=== PATIENT | female | born 1990 | race Caucasian/White ===

== ENCOUNTER → 2018-04-14 14:16 | Outpatient (CLI) | payer BC, SELFPAY ==
[2018-04-14 13:27] VITALS: BMI 32.4
== END ==
PROVIDERS: Family Provider Internal Medicine; PCP Internal Medicine; Visit Provider Obstetrics & Gynecology
DX: Z34.81 Encounter for supervision of other normal pregnancy, first trimester (principal)
CPT/HCPCS: 36415

== ENCOUNTER → 2018-10-19 | Outpatient (CLI) | payer BC, SELFPAY ==
[2018-10-19 16:02] VITALS: BMI 32.4
[2018-10-19 17:57] LABS: Hemoglobin A1c 5.2 % (4.2-6.3)
== END | disposition home or self-care (01) ==
LOC: LAB 17:10
PROVIDERS: Family Provider Internal Medicine; PCP Internal Medicine; Referring Provider Obstetrics & Gynecology; Visit Provider Obstetrics & Gynecology
DX: Z34.81 Encounter for supervision of other normal pregnancy, first trimester (principal)
CPT/HCPCS: 36415; 83036

== ENCOUNTER → 2018-10-26 | Outpatient (CLI) | payer BC, SELFPAY ==
[2018-10-26 15:42] VITALS: BMI 32.4
[2018-10-26 17:09] LABS: Absolute Lymphocyte Count 2.19 X10^3/uL (0.83-4.51); Absolute Neutrophil Count 8.2 X10^3/uL (2.0-7.7); Basophil# 0.02 X10^3/uL; Basophil% 0.2 % (0-1); Eosinophil# 0.09 X10^3/uL; Eosinophils% 0.8 % (0-5); Hematocrit 38.5 % (37-47); Hemoglobin 12.7 g/dL (12.0-15.0); Lymphocyte # 2.19 X10^3/ul (4.0); Lymphocyte % 18.7 % (19-41); Mean Corpuscular Hgb 28.9 pg (27.0-32.0); Mean Corpuscular Volume 87.5 fL (81-99); Mean Platelet Vol. 11.1 fl (6.2-12.0); Monocyte# 1.13 X10^3/uL; Monocyte% 9.6 % (0-10); NRBC Flagged by Analyzer 0 % (0-5); Neutrophil # 8.22 X10^3/uL (2.7-7.7); Platelet Count 240 K/mm3 (150-450); RBC Distribution Width CV 14.3 % (11.6-14.6); White Blood Count 11.7 K/mm3 (4.4-11.0)
[2018-10-26 17:58] LABS: HIV - WCH Non-Reactive (Nonreactive); Rubella IgG 2.5 IU/mL
[2018-10-30 01:38] LABS: Rapid Plasmin Reagin (RPR) NONREACTIVE (NONREACTIVE)
== END | disposition home or self-care (01) ==
LOC: LAB 16:03
PROVIDERS: Family Provider Internal Medicine; PCP Internal Medicine; Referring Provider Obstetrics & Gynecology; Visit Provider Obstetrics & Gynecology
DX: Z34.90 Encounter for supervision of normal pregnancy, unspecified, unspecified trimester (principal); Z3A.40 40 weeks gestation of pregnancy
CPT/HCPCS: 36415; 85025; 86592; 86703; 86762; 86850; 86900; 87086; 87088

== ENCOUNTER 2018-10-29 15:50 | Inpatient (IN) | payer BC, SELFPAY ==
[2018-10-26 15:42] VITALS: BMI 32.4
[2018-10-29 16:33] VITALS: BMI 33.7
[2018-10-29 17:12] LABS: Absolute Lymphocyte Count 2.21 X10^3/uL (0.83-4.51); Absolute Neutrophil Count 9.7 X10^3/uL (2.0-7.7); Basophil# 0.03 X10^3/uL; Basophil% 0.2 % (0-1); Eosinophil# 0.07 X10^3/uL; Eosinophils% 0.5 % (0-5); Hematocrit 39.7 % (37-47); Hemoglobin 13.6 g/dL (12.0-15.0); Lymphocyte # 2.21 X10^3/ul (4.0); Lymphocyte % 16.5 % (19-41); Mean Corp Hgb Conc 34.3 g/dL (32-36); Mean Corpuscular Hgb 29.6 pg (27.0-32.0); Mean Corpuscular Volume 86.5 fL (81-99); Mean Platelet Vol. 10.6 fl (6.2-12.0); Monocyte# 1.29 X10^3/uL; Monocyte% 9.6 % (0-10); NRBC Flagged by Analyzer 0 % (0-5); Neutrophil # 9.67 X10^3/uL (2.7-7.7); Neutrophil % 72.5 % (47-70); Platelet Count 260 K/mm3 (150-450); RBC Distribution Width CV 13.9 % (11.6-14.6); RBC Distribution Width SD 43.1 fl (35.1-43.9); Red Blood Count 4.59 M/mm3 (4.2-5.4); White Blood Count 13.4 K/mm3 (4.4-11.0)
[2018-10-29 17:42] LABS: Hepatitis B Surface Antibody Reactive
--- NOTE | 2018-10-29 18:33 | PCM.HP.OB ---
History Date of Admission: 10/31/18 Final JENN: 10/25/18 Gestational age: 40 Weeks and 6 Days History of this : This is a 28 year-old, at 40w4d weeks gestational age presents in active labor. patient delivered precipitously within an hour and had an uncomplicated . 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 and then transferred care at the end of her due to ketones being present in her urine Medical History: Medical History (Last Reviewed 10/26/18 @ 15:42 by Rosenda Pacheco) Anxiety F41.9 Surgical History: Surgical History (Last Reviewed 10/26/18 @ 15:42 by Rosenda Pacheco) H/O oral surgery Z98.890 Allergies adhesive Adverse Reaction (Verified 10/29/18 16:35) Itching Home Medications: Home Medications vitamin#30 30 mg iron-10 mg iron-folic acid 1 mg-omg3 capsule 1 cap PO DAILY cap 04/14/18 Vitamin B Complex [B Complex] 1 ea PO DAILY 10/29/18 Smoking Status: Never smoker Alcohol: None Number of Fetus(es): 1 NST - FHR Rate Baby A Baseline: 130 Variability:: Moderate Accelerations:: 15 x 15 Decelerations:: None NST Reactive:: Yes FHR Category:: Category I Uterine Activity:: q4-5 History Past Pregnancies: Past Pregnancies 2 previous term uncomplicated Labs: Mom's Labs & Results 10/29/18 10/29/18 10/29/18 16:13 16:13 16:50 WBC 13.4 H RBC 4.59 Hgb 13.6 Hct 39.7 MCV 86.5 MCH 29.6 MCHC 34.3 RDW Std Deviation 43.1 RDW Coeff of Flash 13.9 Plt Count 260 MPV 10.6 Immature Gran % (Auto) 0.700 Neut % (Auto) 72.5 H Lymph % (Auto) 16.5 L [place] % (Auto) 9.6 Eos % (Auto) 0.5 Baso % (Auto) 0.2 Absolute Neuts (auto) 9.7 H Absolute Lymphs (auto) 2.21 Nucleated RBC % 0 Hep Bs Antigen Pending Hep Bs Antibody Reactive Blood Type Antibody Screen 10/29/18 16:50 WBC RBC Hgb Hct MCV MCH MCHC RDW Std Deviation RDW Coeff of Flash Plt Count MPV Immature Gran % (Auto) Neut % (Auto) Lymph % (Auto) [place] % (Auto) Eos % (Auto) Baso % (Auto) Absolute Neuts (auto) Absolute Lymphs (auto) Nucleated RBC % Hep Bs Antigen Hep Bs Antibody Blood Type O POSITIVE Antibody Screen NEGATIVE Course Did the patient receive Yes care? Labs Blood Type: O RH: POSITIVE RPR/VDRL/Syphilis Pending Rubella status Immune HbSAg Negative Date Done: 10/29/18 Chlamydia Not Done Gonorrhea Not Done HIV/AIDS Non-Reactive Group B Strep: Not Done Current Obstetrical History Gestational Diabetes No Incompetent Cervix No Infertility No IUGR No Macrosomia No Hypertension/Pre-eclampsia No Placenta Previa/Abruption No PTL/PROM No Uterine anomaly No Oligohydramnios No Polyhydramnios No Multiple gestation No Past Medical History Asthma No Diabetes No Hypertension No Heart disease No Mitral valve prolapse No Neurologic/Seizure disorder/ No Migraines Kidney disease No Liver disease No Varicosities No Clotting disorders/Hx of DVT No Thyroid Dysfunction No Other medical diseases No Psychiatric disorders No Major trauma No Abnormal PAP smear No Sleep apnea No Mammogram in the last 2 years No Enter DETAILS of medical US of breast - fibrocystic breast history history of anxiety Social History Marital Status: Alleged father Quintin Haro Hx Smoking No Smoking Status Never smoker Expected Infant Delivery Method: Spontaneous Vaginal Review of Systems Constitutional: Denies: Fever, Malaise Eyes: Denies: Blurred vision, Vision Change HEENT: Denies: Head Aches, Visual Changes Cardiovascular: Denies: Chest Pain, Palpitations Respiratory: Denies: Cough, Shortness of Breath, Wheezing Gastrointestinal: Denies: Abdominal Pain, Diarrhea, Nausea, Vomiting Genitourinary: Denies: Dysuria, Hematuria Musculoskeletal: Denies: Joint Pain, Muscle pain Skin: Denies: Lesions, Rash Neurological: Denies: Blurred vision, Focal weakness, Headaches Psychiatric: Denies: Anxiety, Depression Endocrine: Denies: Heat/ Cold Intolerance Hematologic/ Lymphatic: Denies: Easy Bruising, Easy Bleeding Physical Exam General: Alert, Cooperative, No apparent distress HEENT: Atraumatic, Normocephalic. Negative for: Thyromegaly, Lymphadenopathy Cardiovascular: Regular rate Lungs: Normal air movement Abdomen: Soft, Non Tender, Gravid Neurological: Deep Tendon Reflexes 2+/4 and Symmetrical, Neuro grossly intact. Negative for: Clonus MANAGER ENTERPRISE: Normal external genitalia. Negative for: Vulvar lesions Estimated gestational size: Appropriate for gestational size Presentation: Cephalic Assessment/Plan All Active Problems (Last Reviewed 10/26/18 @ 15:42 by Rosenda Pacheco) Obesity affecting (Acute) (Acute) Supervision of normal (Acute) This is a 28 year-old, at 40w4d weeks gestational age presents IAL. delivered uncomplicated
--- NOTE | 2018-10-29 18:33 | PCM.OPRPT ---
Problem List (1) Active labor at term Status: Acute (2) Obesity affecting Status: Acute Qualifiers: Trimester: first trimester Qualified Code(s): O99.211 - Obesity complicating , first trimester Comment: checking 1 week blood sugars. (3) Status: Acute Qualifiers: Weeks of gestation: 40 weeks Qualified Code(s): Z3A.40 - 40 weeks gestation of Comment: nipt done, co care with Zulma Lan planning homebirth, declined labs at this time (4) Supervision of normal Status: Acute Qualifiers: Normal : other normal Trimester: third trimester Qualified Code(s): Z34.83 - Encounter for supervision of other normal , third trimester Comment: (declines labs) JENN 10/25/18 Roger Irene Quintin Vaginal Delivery Maternal Presentation: Active Labor ial 40w4d Amniotic Membrane Rupture Type: Spontaneous Amniotic Fluid Description: Moderate meconium Final JENN: 10/25/18 Gestational age: 40 Weeks and 6 Days Date of Procedure: 10/31/18 Pre-Operative Diagnosis: ial Post-Operative Diagnosis: same Surgery/ Procedure Performed: Spontaneous Vaginal Delivery Type of Anesthesia: Epidural Description of Procedure: patient delivered uncomplicated without issue and head delivered atraumatically. delayed cord clamping two minutes no complications. placenta delivered spontaneously. ebl 300 cc no lacerations Presentation: ALEJANDRA Placental Delivery Description: Spontaneous Placenta Disposition: [facility] Cord Vessel Description: 3 Vessels
[2018-10-30 01:00] VITALS: BP 117/72; PULSE 71; RESP 16; TEMP 36.4; O2SAT 96
[2018-10-30] MEDS: Acetaminophen 500 MG Tablet 1000 MG PO (01:01)
[2018-10-30 04:00] VITALS: BP 108/66; PULSE 57; RESP 16; TEMP 36.4; O2SAT 97
[2018-10-30 08:32] VITALS: BP 99/61; PULSE 80; RESP 16; TEMP 36.6
[2018-10-30 11:54] VITALS: BP 100/64; PULSE 76; RESP 16; TEMP 36.6
[2018-10-30 15:51] VITALS: BP 108/61; PULSE 80; RESP 16; TEMP 36.4
[2018-10-30 20:30] VITALS: BP 117/58; PULSE 77; RESP 16; TEMP 35.8; O2SAT 97
[2018-10-31] MEDS: Acetaminophen 500 MG Tablet 1000 MG PO (00:33)
[2018-10-31 02:50] VITALS: BP 111/74; PULSE 72; RESP 16; TEMP 35.6; O2SAT 97
--- NOTE | 2018-10-31 05:06 | NURSING ---
Rubella on 10/26/18 2.5IU/mL-nonimmune, MMR information sheet given and discussed with pt, pt declines MMR vaccine
[2018-10-31 08:30] VITALS: BP 115/64; PULSE 76; RESP 16; TEMP 36.3
--- NOTE | 2018-10-31 08:33 | PN.OBGYN_ITS ---
Patient Problems: Active and Suspected Problems (Last Reviewed 10/26/18 @ 15:42 by Rosenda Pacheco) Active labor at term (Acute) Subjective: doing well no complaints pain controlled no CP SOB N V ambulating well tolerating po lochia moderate, going well - Physical Exam General: Alert, Oriented x3 Vital Signs Temp Pulse Resp BP Pulse Ox 96.1 F L 72 16 111/74 97 10/31/18 02:50 10/31/18 02:50 10/31/18 02:50 10/31/18 02:50 10/31/18 02:50 Oxygen Delivery Method Room Air Weight: 196 lb 6.91 oz Body Mass Index (BMI) 33.7 Laboratory Tests Past 24 Hrs 10/29/18 16:13 Hep Bs Antigen Pending Medical Necessity - Tobacco Use Smoking Status: Never smoker Assessment/Plan All Active Problems (Last Reviewed 10/26/18 @ 15:42 by Rosenda Pacheco) Active labor at term (Acute) Obesity affecting (Acute) (Acute) Supervision of normal (Acute) s/p PPD # 2 1. routine post delivery care 2. breast feeding- support given 3. rh positive 4. rubella immune Multi Select Codes - Urinary/Genital Urinary/Genital CPT Codes: 59136 Vaginal Delivery [facility]
--- NOTE | 2018-10-31 08:34 | DCINST_ITS ---
Discharge Diet: No Restrictions Discharge Activity: Return to Normal Activity, May not drive while taking narcotic pain medications., May Shower May resume sexual activity in: 4-6 weeks Call your doctor if your incision/area has: Continuous Slow Oozing, Sudden Increased Bleeding, Increased Pain/ Swelling, Increased Redness, Foul Smelling Discharge Additional Instructions: If you experience any of the following, contact your healthcare provider. * Bleeding that soaks a pad every hour for 2 hours * Fever 100.4 or higher * Unrelieved incision or abdominal pain * Swelling, redness, discharge or bleeding from your incision or episiotomy site * Your incision begins to separate * Problems urinating (including inability to urinate or burning while urinating). * Visual changes * Severe headache * Flu-like symptoms * Pain or redness in one of both of your breasts * Pain, warmth, tenderness or swelling in your legs, especially the calf area * Frequent nausea and vomiting * Symptoms of depression or anxiety If you experience any of the following, call 911 or go to the nearest Emergency Room. * Chest pain * Problems breathing * Seizure activity * Partial or complete paralysis of a body part, slurred speech, weakness or drooping of the face, or a sudden inability to walk or hold your balance Allergies/Adverse Reactions: Allergies adhesive Adverse Reaction (Verified 10/29/18 16:35) Itching Medications to take at Discharge vitamin#30 30 mg iron-10 mg iron-folic acid 1 mg-omg3 capsule 1 cap PO DAILY cap 04/14/18 Vitamin B Complex [B Complex] 1 ea PO DAILY 10/29/18 Please Follow Up With: Pari Gallegos MD - [phone] When: Call to make an appointment with your doctor in 6 weeks. If you had elevated Blood pressure or 4th degree laceration you will need to be seen in 2 weeks. Primary Care Physician: Paulette Sanchez DO [Primary Care Provider] - Test Results: Test results from this visit will be discussed in further detail at your follow- up appointment, if applicable.
--- NOTE | 2018-10-31 08:34 | PCM.DCVAG ---
Discharge Diet: No Restrictions Discharge Activity: Return to Normal Activity, May not drive while taking narcotic pain medications., May Shower May resume sexual activity in: 4-6 weeks Call your doctor if your incision/area has: Continuous Slow Oozing, Sudden Increased Bleeding, Increased Pain/ Swelling, Increased Redness, Foul Smelling Discharge Additional Instructions: If you experience any of the following, contact your healthcare provider. Bleeding that soaks a pad every hour for 2 hours Fever 100.4 or higher Unrelieved incision or abdominal pain Swelling, redness, discharge or bleeding from your incision or episiotomy site Your incision begins to separate Problems urinating (including inability to urinate or burning while urinating). Visual changes Severe headache Flu-like symptoms Pain or redness in one of both of your breasts Pain, warmth, tenderness or swelling in your legs, especially the calf area Frequent nausea and vomiting Symptoms of depression or anxiety If you experience any of the following, call 911 or go to the nearest Emergency Room. Chest pain Problems breathing Seizure activity Partial or complete paralysis of a body part, slurred speech, weakness or drooping of the face, or a sudden inability to walk or hold your balance Allergies/Adverse Reactions: Allergies adhesive Adverse Reaction (Verified 10/29/18 16:35) Itching Medications to take at Discharge vitamin#30 30 mg iron-10 mg iron-folic acid 1 mg-omg3 capsule 1 cap PO DAILY cap 04/14/18 Vitamin B Complex [B Complex] 1 ea PO DAILY 10/29/18 Please Follow Up With: Pari Gallegos MD - [phone] When: Call to make an appointment with your doctor in 6 weeks. If you had elevated Blood pressure or 4th degree laceration you will need to be seen in 2 weeks. Primary Care Physician: Paulette Sanchez DO [Primary Care Provider] - Test Results: Test results from this visit will be discussed in further detail at your follow-up appointment, if applicable.
[2018-10-31 08:39] LABS: Hepatitis B Surface Antigen Non-Reactive (Nonreactive)
[2018-10-31 13:44] VITALS: BP 114/61; PULSE 84; RESP 18; TEMP 36.1
== END 2018-10-31 14:15 | disposition home or self-care (01) | DRG 807 ==
PROVIDERS: Pediatrics; Admitting Provider Obstetrics & Gynecology; Family Provider Internal Medicine; PCP Internal Medicine; Referring Provider Obstetrics & Gynecology; Visit Provider Obstetrics & Gynecology
DX: O62.3 Precipitate labor (principal); O77.0 Labor and delivery complicated by meconium in amniotic fluid; O99.214 Obesity complicating childbirth; E66.9 Obesity, unspecified; Z3A.40 40 weeks gestation of pregnancy; Z37.0 Single live birth
CPT/HCPCS: 59050; 85025; 86706; 86850; 86900; 86901; 87340; 99218; G0378